=== PATIENT | male | born 1995 | race African-American/Black ===

== ENCOUNTER 2021-12-31 11:45 | Emergency (ER) | payer BC ==
[2021-12-31] MEDS ORDERED: Dicyclomine 20 MG/2 ML VIAL ONE (12:10)
[2021-12-31] MEDS ORDERED: Ondansetron PF 4 MG/2 ML Vial ONE (12:11)
[2021-12-31 13:43] LABS: Anion Gap 16 mmol/L (10-20); BUN (Urea Nitrogen) 13 mg/dL (8.9-20.6); Calc. Creatinine Clearance 0 mL/min (70-130); Carbon Dioxide 27 mmol/L (22-29); Chloride 96 mmol/L (98-107); Glucose 84 mg/dL (70-105); Potassium 3.6 mmol/L (3.5-5.1); Sodium 135 mmol/L (136-145)
[2021-12-31] MEDS ORDERED: Metoclopramide HCl 10 MG/2 ML VIAL ONE (13:49)
[2021-12-31] MEDS ORDERED: Ketorolac Tromethamine 30 MG/ML VIAL ONE (14:15)
== END 2021-12-31 14:25 | disposition home or self-care (01) ==
LOC: CSHERS 11:45
DX: R11.2 Nausea with vomiting, unspecified (principal); F12.10 Cannabis abuse, uncomplicated
CPT/HCPCS: 36415; 80048; 96372; 96374; 96375; J0500; J1885; J2405; J2765